=== PATIENT | male | born 1960 | race Caucasian/White ===

== ENCOUNTER 2018-06-16 06:40 | Day surgery (SDC) | payer BC ==
[2018-06-16] MEDS ORDERED: fentaNYL 100 MCG/2 ML SDV ONE (07:23)
[2018-06-16] MEDS ORDERED: Midazolam 1 MG/ML 2 ML SDV ONE (07:23)
[2018-06-16] MEDS ORDERED: Propofol 200 MG/20 ML SDV ONE (07:23)
[2018-06-16] MEDS ORDERED: Lactated Ringers 1,000 ML IV SCH (07:30)
[2018-06-16 10:03] VITALS: BP 116/75
--- NOTE | 2018-06-16 13:25 | OR ---
DATE OF PROCEDURE: 06/16/2018 PREOPERATIVE DIAGNOSIS: Colon cancer screening. POSTOPERATIVE DIAGNOSIS: Diverticulosis. PROCEDURE: Colonoscopy to the cecum. SURGEON: Eriberto Nevarez MD ANESTHESIA: IV anesthesia with monitored anesthesia care. INDICATION: This 57-year-old white male is referred for a colonoscopy for colon cancer screening. He says his last colonoscopic exam was done 10 to 12 years ago. It was done back then for some blood in stool and was negative. I counseled him for a colonoscopy with possible biopsy and/or polypectomy including risks and alternatives, and he gave his informed consent to proceed. DESCRIPTION OF PROCEDURE: The patient was placed in the left lateral decubitus position. IV anesthesia was administered by the Anesthesia Service. Time-out was held. A rectal exam was performed, which was unremarkable. The flexible video Olympus colonoscope was introduced through his anus, up his rectum, and out his colon all the way to the cecum. En route, we saw multiple left-sided diverticula. There was no bleeding or inflammation associated with any of them. Once the cecum was reached, the scope was slowly withdrawn examining the mucosa throughout. No additional mucosal abnormalities were noted. The scope was retroflexed in the rectum with the distal rectum appearing unremarkable. The scope was straightened and removed. He tolerated the procedure well. Eriberto Nevarez MD /[id number] MTDD
== END 2018-06-16 10:05 | disposition home or self-care (01) ==
LOC: JP.SDS 06:40
PROVIDERS: ATTEND Surgery
DX: Z12.11 Encounter for screening for malignant neoplasm of colon (principal); K57.30 Diverticulosis of large intestine without perforation or abscess without bleeding; I10 Essential (primary) hypertension; E78.5 Hyperlipidemia, unspecified; K21.9 Gastro-esophageal reflux disease without esophagitis; F41.9 Anxiety disorder, unspecified; G47.33 Obstructive sleep apnea (adult) (pediatric); Z99.89 Dependence on other enabling machines and devices
CPT/HCPCS: 45378; J2250; J2704; J3010; J7120

== ENCOUNTER 2018-07-30 08:41 | Emergency (ER) | payer BC ==
[2018-07-30 09:42] VITALS: BP 144/84
--- NOTE | 2018-07-30 09:58 | EDM.PDOC ---
ED HPI GENERAL MEDICAL PROBLEM - General Chief Complaint: Genitourinary Problem Stated Complaint: POSSIBLE KIDNEY STONES Time Seen by Provider: 07/30/18 09:54 Source of Information: Reports: Patient History Limitations: Reports: No Limitations - History of Present Illness INITIAL COMMENTS - FREE TEXT/NARRATIVE: pt developed pain in the left flank on thur and it was fairly high in the abdoman that day. Today he woke up with severe left groin pain which was quite severe. Right now it is better rating his pain at a 5. Onset: Other (started thur. ) Duration: Hour(s): Location: Reports: Abdomen Associated Symptoms: Reports: No Other Symptoms Left Lower Abdomen Pain Score (Numeric/FACES): 6 - Related Data Allergies Allergy/AdvReac Type Severity Reaction Status Date / Time No Known Allergies Allergy Verified 07/30/18 09:47 Home Meds: Home Meds Citalopram [Citalopram Hbr] 40 mg PO DAILY 07/27/14 [History] Levothyroxine [Sythroid] 100 mcg PO DAILY 07/27/14 [History] Omeprazole 40 mg PO DAILY 07/27/14 [History] Pravastatin [Pravachol] 40 mg PO DAILY 07/27/14 [History] Past Medical History Cardiovascular History: Reports: High Cholesterol Respiratory History: Reports: Sleep Apnea Gastrointestinal History: Reports: Diverticulosis, GERD Musculoskeletal History: Reports: Fracture Psychiatric History: Reports: Anxiety, Panic Attack Endocrine/Metabolic History: Reports: Hypothyroidism, Obesity/BMI 30+ - Infectious Disease History Infectious Disease History: Reports: Chicken Pox, Measles, Mumps - Past Surgical History Cardiovascular Surgical History: Reports: None Respiratory Surgical History: Reports: None GI Surgical History: Reports: Colonoscopy Endocrine Surgical History: Reports: None Musculoskeletal Surgical History: Reports: None Social & Family History - Caffeine Use Caffeine Use: Reports: Coffee ED ROS GENERAL - Review of Systems Review Of Systems: See Below Constitutional: Reports: No Symptoms HEENT: Reports: No Symptoms Respiratory: Reports: No Symptoms Cardiovascular: Reports: No Symptoms Endocrine: Reports: No Symptoms GI/Abdominal: Reports: Other (pt has left lower abdomanal pain. This started in the left flank on thur. He feels like the pain is alot better at this point. ) : Reports: Flank Pain, Other (left groin pain. ) Musculoskeletal: Reports: No Symptoms Skin: Reports: No Symptoms ED EXAM, RENAL/ - Physical Exam Exam: See Below Text/Narrative:: pt arrived with pain in the left lower abdoman. He is rating it a 4. he has been having difficulty for about 4 days on and off. Exam Limited By: No Limitations General Appearance: Alert, Moderate Distress Ears: Normal TMs Nose: Normal Inspection Throat/Mouth: Normal Inspection Head: Atraumatic Neck: Normal Inspection Respiratory/Chest: No Respiratory Distress Cardiovascular: Regular Rate, Rhythm GI/Abdominal: Other (Pt has tenderness on the left side of the bladder. ) (Male) Exam: Deferred Rectal (Males) Exam: Deferred Back Exam: Normal Inspection, CVA Tenderness (L) Extremities: Normal Inspection Neurological: Alert, Oriented, Normal Cognition Psychiatric: Normal Affect Course - Vital Signs Last Recorded V/S: Last Vital Signs Temp 36.5 C 07/30/18 09:56 Pulse 93 07/30/18 09:56 Resp 16 07/30/18 09:56 BP 144/84 H 07/30/18 09:56 Pulse Ox 97 07/30/18 09:56 - Orders/Labs/Meds Labs: Laboratory Tests 07/30/18 07/30/18 07/30/18 Range/Units 09:56 10:01 10:01 WBC 5.8 (4.5-11.0) K/uL RBC 4.20 L (4.30-5.90) M/uL Hgb 13.1 (12.0-15.0) g/dL Hct 39.2 L (40.0-54.0) % MCV 93 (80-98) fL MCH 31 (27-31) pg MCHC 33 (32-36) % Plt Count 155 (150-400) K/uL Neut % (Auto) 79 H (36-66) % Lymph % (Auto) 10 L (24-44) % Swain % (Auto) 9 H (2-6) % Eos % (Auto) 1 L (2-4) % Baso % (Auto) 0 (0-1) % Sodium 141 (140-148) mmol/L Potassium 4.3 (3.6-5.2) mmol/L Chloride 104 (100-108) mmol/L Carbon Dioxide 28 (21-32) mmol/L Anion Gap 9.1 (5.0-14.0) mmol/L BUN 14 (7-18) mg/dL Creatinine 1.6 H (0.8-1.3) mg/dL Est Cr Clr Drug Dosing 58.95 mL/min Estimated GFR (MDRD) 45 L (>60) Glucose 104 (74-106) mg/dL Calcium 9.1 (8.5-10.1) mg/dL Total Bilirubin 0.6 (0.2-1.0) mg/dL AST 25 (15-37) U/L ALT 34 (12-78) U/L Alkaline Phosphatase 90 (46-116) U/L Total Protein 6.9 (6.4-8.2) g/dL Albumin 3.6 (3.4-5.0) g/dL Globulin 3.3 (2.3-3.5) g/dL Albumin/Globulin Ratio 1.1 L (1.2-2.2) Urine Color Yellow Urine Appearance Clear Urine pH 7.0 (4.5-8.0) Ur Specific [place] 1.005 L (1.008-1.030) Urine Protein Negative (NEGATIVE) mg/dL Urine Glucose (UA) Normal (NEGATIVE) mg/dL Urine Ketones Negative (NEGATIVE) mg/dL Urine Occult Blood Large (NEGATIVE) Urine Nitrite Negative (NEGAITVE) Urine Bilirubin Negative (NEGATIVE) Urine Urobilinogen Normal (NORMAL) mg/dL Ur Leukocyte Esterase Negative (NEGATIVE) Urine RBC 0-5 (0-5) Urine WBC Not seen (0-5) Ur Epithelial Cells Not seen Amorphous Sediment Not seen Urine Bacteria Not seen Urine Mucus Not seen Meds: Medications Discontinued Medications Generic Name Dose Route Start Last Admin Trade Name Jeffq PRN Reason Stop Dose Admin Ketorolac Tromethamine 60 mg 07/30/18 11:51 07/30/18 11:58 Toradol IM 07/30/18 11:52 60 mg ONETIME ONE Administration Tamsulosin HCl 0.4 mg 07/30/18 11:51 07/30/18 11:58 Flomax PO 07/30/18 11:52 0.4 mg ONETIME ONE Administration - Re-Assessments/Exams Free Text/Narrative Re-Assessment/Exam: 07/30/18 11:54 cat scan showed a 7x4 mm stone near the bladder on the left. Pt was given flomax and torodol in the ER. 07/30/18 11:59 Departure - Departure Time of Disposition: 11:52 Disposition: Home, Self-Care 01 Condition: Fair Clinical Impression: Ureteral calculus, left - Discharge Information Instructions: Kidney Stones, [id number] Referrals: Lizzette Correia PA [Primary Care Provider] - Forms: ED Department Discharge Care Plan Goals: push fluids, flomax .4 daily, torodol 10mg qid for pain, percocet 5/325 q6h prn for pain--severe. appt with Tara Correia on tue if stone has not passed, strain all urine.
--- NOTE | 2018-07-30 11:40 | CRLCT ---
INDICATION: Left flank/ left groin pain. TECHNIQUE: CT abdomen and pelvis without contrast. COMPARISON: 11/05/2009. FINDINGS: On axial image 180 of series 2 there is a 7 x 4 millimeter obstructing calculus identified within the distal left ureter. This calculus is at the level of the inferior left sacroiliac joint and is causing mild left-sided hydronephrosis and left-sided hydroureter. There is stranding of left perinephric fat. No other left-sided urolithiasis is identified. A solitary nonobstructing calyceal calcification in the inferior pole of the right kidney measures up to a 7 millimeters in diameter with no other right-sided urolithiasis seen. In the lower thorax there are no masses or effusions. The liver, spleen, gallbladder, pancreas, adrenal glands, appendix, urinary bladder, prostate and seminal vesicles appear normal. No gastric or small bowel abnormalities are seen. There is diverticulosis of the colon most of the sigmoid colon region with no CT evidence for active diverticulitis. Moderate spondylosis changes present throughout the lumbar spine. No acute osseous abnormalities are seen. IMPRESSION: 1. 7 x 4 millimeter obstructing calculus in the distal left ureter is causing mild left-sided hydronephrosis and left-sided hydroureter. 2. Solitary nonobstructing caliceal calcification in the right kidney measures up to 7 millimeters. 3. Other findings are as discussed above. Please note that all CT scans at this facility use dose modulation, iterative reconstruction, and/or weight-based dosing when appropriate to reduce radiation dose to as low as reasonably achievable. Dictated by Varun Baltazar MD @ Jul 30 2018 11:29AM Signed by Dr. Varun Baltazar @ Jul 30 2018 11:38AM
[2018-07-30] MEDS ORDERED: Ketorolac 60 MG/2 ML SDV IM ONE (11:51)
[2018-07-30] MEDS ORDERED: Tamsulosin 0.4 MG Cap.ER PO ONE (11:51)
== END 2018-07-30 12:12 | disposition home or self-care (01) ==
LOC: JP.ED 08:41
DX: N13.2 Hydronephrosis with renal and ureteral calculous obstruction (principal); E78.00 Pure hypercholesterolemia, unspecified; Z79.899 Other long term (current) drug therapy
CPT/HCPCS: 36415; 74176; 80053; 81001; 85025; 96372; 99284; A9270; J1885

== ENCOUNTER 2022-04-20 22:01 | Emergency (ER) | payer MEDICAID ==
[2022-04-20] MEDS ORDERED: Sodium Chloride 0.9% 1,000 ML IV ONE (23:09)
[2022-04-20 23:37] LABS: ESTIMATED GFR 98 mL/min (>60)
[2022-04-21] MEDS ORDERED: Sodium Chloride 0.9% 1,000 ML IV SCH (03:45)
[2022-04-21 04:08] VITALS: BP 125/69; PULSE 82
== END 2022-04-21 07:10 | disposition other institution (70) ==
LOC: JP.ED 22:01
DX: R55 Syncope and collapse (principal); D50.0 Iron deficiency anemia secondary to blood loss (chronic); K62.5 Hemorrhage of anus and rectum; E78.00 Pure hypercholesterolemia, unspecified; E03.9 Hypothyroidism, unspecified; K21.9 Gastro-esophageal reflux disease without esophagitis; E66.9 Obesity, unspecified; Z68.34 Body mass index [BMI] 34.0-34.9, adult; Z79.899 Other long term (current) drug therapy; Z20.822 Contact with and (suspected) exposure to COVID-19
CPT/HCPCS: 36415; 36430; 80053; 83605; 85025; 86850; 86900; 86901; 86920; 86922; 87493; 96360; 96361; 99285; 99285-25; J7030; P9016; U0002

== ENCOUNTER 2024-07-03 17:11 | Emergency (ER) | payer MEDICAID, OTHER ==
[2024-07-03 17:32] VITALS: BP 145/83; PULSE 77
[2024-07-03] MEDS: HYDROmorphone 1 MG/ML Syringe IM ONE (17:44)
== END 2024-07-03 18:57 | disposition home or self-care (01) ==
LOC: JP.ED 17:11
DX: S22.42XA Multiple fractures of ribs, left side, initial encounter for closed fracture (principal); E66.9 Obesity, unspecified; M19.90 Unspecified osteoarthritis, unspecified site; K21.9 Gastro-esophageal reflux disease without esophagitis; E78.00 Pure hypercholesterolemia, unspecified; Z79.899 Other long term (current) drug therapy; W01.0XXA Fall on same level from slipping, tripping and stumbling without subsequent striking against object, initial encounter
CPT/HCPCS: 71250; 73030; 96372; 99284; J1171; 99283